=== PATIENT | female | born 1955 | race Caucasian/White ===

== ENCOUNTER 2016-12-27 10:35 | Inpatient (IN) | payer BC ==
--- NOTE | ~2016-12-27 | CN ---
Consultation Report [facility] [address] [place]. [address] NAME: RENEE COLLINS : 55 STATUS : ADM IN PAT#: [id number] AGE: 61 ADM/REG DATE : 12/27/16 MR#: [id number] REPORT SERV DATE: 12/28/16 DICTATED BY: JAMES MASON DATE: 12/28/16 REPORT STATUS : Draft TRANSCRIBED BY: MODL DATE: 12/28/16 CONSULTATION DATE OF CONSULTATION: HISTORY AND PHYSICAL/CONSULTATION REASON FOR CONSULTATION: Asthma exacerbation. HISTORY OF PRESENT ILLNESS: This is a very pleasant 61-year-old white female, who had a recent admission to [facility] where she states that she had been treated for bilateral pneumonia, had been placed on IV antibiotics there, and then discharged home on Levaquin. Subsequently afterwards, she still felt short of breath and fatigued and dyspneic despite the treatment and presented to [facility] where she was admitted by Cardiology Service for chest pain. She has actually undergone a heart catheterization that was performed showing clean coronary arteries and no intervention was done but has continued to feel some shortness of breath and began wheezing quite heavily, and Hospitalist Service was asked for consult given the patient's history of COPD and tobacco use. She states that she currently is smoking approximately half a pack per day, that her current regimen of nebulizer therapy and inhaler therapy has not changed. She does not see a battery service technician, and she does wear oxygen at home, 2 to 3 liters at night. She states that in the past, she has been treated with steroid therapy, and this has helped her get over her exacerbations of COPD and wheezing, but has not been given steroids in some time. PAST MEDICAL HISTORY: Includes hypertension, anxiety, depression, COPD, diabetes type 2 that is diet controlled, coronary artery disease, an WA in 2007, rheumatoid arthritis, chronic pain syndrome, and seizure disorder that has resolved. PAST SURGICAL HISTORY: Hysterectomy, cholecystectomy, appendectomy, prior hernia surgeries, back surgery, three knee surgeries, and cerebral aneurysm with embolization surgery. FAMILY HISTORY: Mother with hypertension and lung cancer. Grandmother with stomach cancer. Father with hypertension and cirrhosis of the liver. SOCIAL HISTORY: She denies any alcohol use. As stated, she smokes half a pack per day, but smoked one to two packs per day prior to that for 40 plus years. ALLERGIES: ZOFRAN, KETORALAC, CONTRAST IODINE, CYCLOBENZAPRINE, AND NEOMYCIN. PRIMARY CARE: [facility]. REVIEW OF SYSTEMS: Negative except for pertinents mentioned in the above HPI. Consultation Report [facility] [address] [place]. [address] NAME: RENEE COLLINS : 55 STATUS : ADM IN PAT#: [id number] AGE: 61 ADM/REG DATE : 12/27/16 MR#: [id number] REPORT SERV DATE: 12/28/16 DICTATED BY: JAMES MASON DATE: 12/28/16 REPORT STATUS : Draft TRANSCRIBED BY: MODL DATE: 12/28/16 LABORATORY AND DIAGNOSTIC DATA: Imaging and testing done so far include a CTA of the chest showing a small pericardial effusion, left pleural effusion, and prominent lymph nodes in the mediastinum, the largest measuring 9 mm. The heart catheterization as described. The echocardiogram showing ejection fraction of 55%, some mild diastolic dysfunction but no significant valve disease, and a trace pericardial effusion with no hemodynamic compromise noted. Lab work shows sodium 134, potassium 4.4, BUN at 9, and creatinine 0.73. White blood cells 12.8, hemoglobin 10.5, and hematocrit 30.7. Interestingly, her INR is 1.5. PHYSICAL EXAMINATION: GENERAL: The patient is alert and oriented x3. No focal deficits. She is generally cooperative and awake for this exam. LUNGS: She does have somewhat labored breathing pattern. She has significant inspiratory and expiratory wheezing and rhonchus on auscultation of the lung riggs. A small rub heard upon auscultation of the chest wall. HEART: Otherwise, regular rate and rhythm, in sinus. No murmurs were auscultated. ABDOMEN: Soft but somewhat generally tender and presence of abdominal hernia. Active bowel sounds. EXTREMITIES: She does have trace to +1 edema in the bilateral lower extremities. HEENT: PERRLA is noted. Sclerae are clear. SKIN: Otherwise, skin is warm and dry. NECK: No JVD. No lymphadenopathy. Normal thyroid. NEUROLOGIC: Cranial nerves intact. ASSESSMENT: 1. Asthma/chronic obstructive pulmonary disease exacerbation with wheezing in the setting of tobacco use. 2. Pericarditis. 3. Small to trace pericardial effusion. 4. Leukocytosis. 5. History of hypertension. 6. History of recent pneumonia treatment. 7. Chronic pain syndrome. 8. Chronic home O2 usage. PLAN: We will treat with IV Solu-Medrol, transition to p.o. prednisone. We will start doxycycline 100 mg twice a day. We will add Pulmicort nebulizer therapies. Lab work; we will check a procalcitonin, TSH, and hemoglobin A1c and follow other basic lab work to include CBC, BMP, magnesium, and PT and INR in the a.m. We will wean her O2 to keep saturations greater than 93%. We will keep her on 2 liters at night, and we will establish pulmonary followup for the patient as an outpatient with Dr. Chase given the chronic disease pattern and the findings of lymph nodes on the CTA. I have discussed this treatment plan with the patient at bedside. She is in agreement. We appreciate the opportunity to participate in the care of this patient. Consultation Report [address] [place]. [address] NAME: RENEE COLLINS ANN : 55 STATUS : ADM IN [facility]#: [id number] AGE: 61 ADM/REG DATE : 12/27/16 MR#: [id number] REPORT SERV DATE: 12/28/16 DICTATED BY: JAMES MASON DATE: 12/28/16 REPORT STATUS : Draft TRANSCRIBED BY: REJI DATE: 12/28/16 JOY/REJI James Mason NP / [id number] CC: Todd Valerio M.D.
--- NOTE | ~2016-12-27 | HP ---
History And Physical [facility] [address] [facility]. [address] NAME: RENEE COLLINS : 55 STATUS : ADM IN PAT#: [id number] AGE: 61 ADM/REG DATE : 12/27/16 MR#: [id number] REPORT SERV DATE: 12/27/16 DICTATED BY: JESSICA VALERIO DATE: 12/27/16 REPORT STATUS : Draft TRANSCRIBED BY: MODL DATE: 12/27/16 DATE OF ADMISSION: 12/27/2016 CHIEF COMPLAINT: Chest pain. HISTORY OF PRESENT ILLNESS: The patient is a 61-year-old female without known cardiac disease. The patient was seen by my partner earlier today at our [facility] office of the [facility]. She had a two to three day history of severe back and chest discomfort. She reported intrascapular chest pain with radiation to the chest. There was a clear pleuritic component on her description, when arrived in the catheterization laboratory. Electrocardiogram was performed, which by interpretation of physicians in the outpatient clinic was felt to be consistent with inferior ST-segment elevation myocardial infarction. The patient was transferred emergently to the [facility] with direct admission to the Catheterization Laboratory at [facility]. On arrival in the Catheterization Laboratory, the patient complained of 7/10 intensity chest discomfort. There was a clear pleuritic exacerbation of the discomfort with deep breathing. The patient described intrascapular pain with radiation to the chest. She reports a recent history of pneumonia, for which she was hospitalized in [facility] several weeks ago. The patient was received via the Code STEMI activation with direct admission to the cardiac catheterization laboratory. The patient reports that chest pain actually began approximately two weeks ago with associated fatigue. The patient took her 's sublingual nitroglycerin which seemed to intermittently improve symptoms. An echocardiogram performed recently demonstrated mild pericardial effusion. The patient also reported significant dyspnea on exertion over the last week or so. Reportedly, becoming dyspneic after only crossing the room. PAST MEDICAL HISTORY: 1. Hypertension. 2. History of palpitations. 3. Anxiety disorder. 4. Depression. 5. Chronic obstructive pulmonary disease. 6. Diabetes mellitus, reportedly diet controlled. ALLERGIES: FLEXERIL, ERYTHROMYCIN, TOLUENE AND ZOFRAN. PAST SURGICAL HISTORY: Previous back surgery, herniorrhaphy, bilateral knee surgeries, hysterectomy, and previous excision of an unknown type of tumor from the stomach. FAMILY HISTORY: Mother and brother with history of early coronary artery disease. SOCIAL HISTORY: Smoking one pack a day and has done so for approximately the last forty years. REVIEW OF SYSTEMS: History And Physical [address] [address] NAME: RENEE COLLINS : 55 STATUS : ADM IN PAT#: [id number] AGE: 61 ADM/REG DATE : 12/27/16 MR#: [id number] REPORT SERV DATE: 12/27/16 DICTATED BY: JESSICA VALERIO DATE: 12/27/16 REPORT STATUS : Draft TRANSCRIBED BY: MODWinston DATE: 12/27/16 Review of systems negative for all organ systems except per the history of present illness. PHYSICAL EXAMINATION: VITAL SIGNS: Blood pressure 136/78, pulse 82, respirations 16 and unlabored, saturation 98% on 2 liters nasal cannula. GENERAL: Elderly female, in moderate distress secondary to chest pain. HEENT: Normal. NECK: Supple, no JVD or bruit, normal carotid upstroke bilaterally, no thyromegaly. LUNGS: Clear to auscultation and percussion. No wheezes, rales or rhonchi. No use of accessory muscles. CARDIOLOGY: Regular rhythm, normal S1, S2, no thrill, no murmur, rubs or gallops, normal PMI. ABDOMEN: Bowel sounds positive, soft, nontender, and nondistended. No masses or aortic bruits. No hepatosplenomegaly or hepatojugular reflux. EXTREMITIES: No edema. Normal pulses. No clubbing or cyanosis. SKIN: Warm and dry, no significant rash. NEUROLOGIC: Alert and oriented x 3. Appropriate mood. EKG: Sinus rhythm, with AL depression and nonspecific ST elevation rather diffusely however more prominent in the inferior leads. IMPRESSION: 1. Suspected acute inferior wall myocardial infarction - the patient received emergently cardiac catheterization laboratory. Catheterization and PCI planned as indicated. 2. Symptoms suspicious for aortic dissection versus serositis, specifically pericarditis. Recent history of reported hospitalization for pneumonia, pleurisy cannot be excluded. In summary, cardiac catheterization demonstrating no significant coronary artery disease with normal left ventricular systolic function and normal regional wall motion abnormalities. CT angiogram of the chest to rule out aortic dissection. Echocardiogram to re-evaluate for any interval progression in pericardial effusion. Suspicious for pericarditis. Nonsteroidal anti-inflammatory treatment and colchicine for presumed pericarditis. CSL/MODL Todd Valerio M.D. / [id number] CC: Todd Valerio M.D.
--- NOTE | ~2016-12-27 | DS ---
Discharge Summary [facility] [address] [place]. [address] NAME: RENEE COLLINS : 55 STATUS : DIS IN PAT#: [id number] AGE: 61 ADM/REG DATE : 12/27/16 MR#: [id number] REPORT SERV DATE: 01/11/17 DICTATED BY: JESSICA VALERIO DATE: 01/10/17 REPORT STATUS : Draft TRANSCRIBED BY: REJI DATE: 01/10/17 Data Collection from hospitalization DISCHARGE DIAGNOSES: 1. Pericarditis. 2. Asthma exacerbation. 3. Hypertension. 4. Diabetes mellitus-reportedly diet controlled. 5. History of palpitations. 6. Anxiety disorder. 7. Depression. 8. Chronic obstructive pulmonary disease. 9. Tobacco use. CONSULTATION: James Bowen NP PROCEDURES PERFORMED: 1. Cardiac catheterization and percutaneous coronary intervention, 12/27/2016. 2. CTA of the chest, 12/27/2016. MEDICATIONS: ProAir two puffs via inhaler every four hours as needed, albuterol 0.63 mg three times a day via inhaler, Xanax 1 mg three times a day as needed, Norvasc 10 mg daily, Brenda aspirin 325 mg daily, Lipitor 40 mg at bedtime, Dramamine 50 mg every four hours as needed, docusate sodium 100 mg at bedtime, Flonase nasal spray two sprays nasally at bedtime, Apresoline 25 mg twice a day, Dilaudid 4 mg twice a day, Prinivil 40 mg daily, Remeron 45 mg at bedtime, Naprosyn 500 mg every 12 hours, Roxicodone 30 mg twice a day, Paxil 20 mg daily, MiraLAX powder one packet daily, Deltasone 20 mg daily, Phenergan 12.5 mg every six hours as needed, Spiriva HandiHaler one capsule via inhaler daily. She was instructed not to continue Plavix or nitroglycerin. HOSPITAL COURSE: This is a 61-year-old female without known cardiac disease. The patient had been seen in the [facility] office of the [facility] on the day of this admission. She had two- to three-day history of severe back and chest discomfort. She reported interscapular chest pain with radiation to the chest. There was a clear pleuritic component to this description. Electrocardiogram had been performed and interpreted by physicians in the outpatient clinic and it was felt to be consistent with inferior ST-segment elevation myocardial infarction. The patient was transferred emergently to [facility] for direct admission to the collaborating supervising physician at [facility]. She was admitted at this time for further evaluation and treatment. Upon arrival in the cardiac collaborating supervising physician, she complained of 7/10 intensity chest pain. There was a clear pleuritic exacerbation of the discomfort with deep breathing. She described interscapular pain with radiation to the chest. She reports a recent history of pneumonia and she had been hospitalized in [facility] several weeks prior to this admission. The patient had been received via the code STEMI activation. The patient states that her chest pain actually began about two weeks prior to this admission. It was associated with fatigue. She took her 's sublingual nitroglycerin, which seemed to intermittently improve her symptoms. Recent echocardiogram demonstrated mild pericardial effusion. She Discharge Summary [address] [place]. [address] NAME: RENEE COLLINS ANN : 55 STATUS : DIS IN PAT#: [id number] AGE: 61 ADM/REG DATE : 12/27/16 MR#: [id number] REPORT SERV DATE: 01/11/17 DICTATED BY: JESSICA VALERIO DATE: 01/10/17 REPORT STATUS : Draft TRANSCRIBED BY: REJI DATE: 01/10/17 had also reported significant dyspnea on exertion over the past week or so. Reportedly, she would become dyspneic after only crossing the room. It was suspected that she has had an acute inferior wall myocardial infarction. She had undergone cardiac catheterization and percutaneous coronary intervention. Cardiac catheterization demonstrated no significant coronary artery disease with normal left ventricular systolic function and normal regional wall motion abnormalities. CTA of the chest was performed to rule out aortic dissection. Echocardiogram was performed to re-evaluate for any interval progression of pericardial effusion. There was suspicion for pericarditis. Nonsteroidal anti-inflammatory treatment and colchicine would be provided for presumed pericarditis. On the following day, she was in a sinus rhythm. Chest pain had improved. She did have wheezing and dyspnea. She had expiratory wheezing. Pericarditis was improving. She was felt to have an exacerbation of her asthma. Naprosyn and colchicine had been started as well as DuoNeb. Gentle diuresis was being performed. She was going to be transferred to the floor. She was seen in consultation by James Bowen, regarding asthma exacerbation. She continued to feel shortness of breath and began to wheeze quite heavily. The patient said she was currently smoking approximately a half pack per day and that her current regimen of nebulizer therapy and inhaler therapy had not changed. 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 She said in the past she had been treated with steroid therapy and this helped her get over the exacerbations of COPD and wheezing. She had not been given steroids in some time. Her CTA of the chest had shown a small pericardial effusion, left pleural effusion and prominent lymph nodes in the mediastinum, the largest measured 9 mm. White blood cell count was 12.8. INR level was 1.5. She was felt to have asthma/chronic obstructive pulmonary disease exacerbation with wheezing in the setting of tobacco use. IV Solu-Medrol was going to be given. We would transition to oral prednisone. Doxycycline was started. Pulmicort nebulizer therapy was added. Procalcitonin, TSH, hemoglobin A1c were going to be checked. O2 would be weaned to keep her saturations greater than 93%. We would keep her on 2 L at night. We would establish pulmonary follow up for the patient as an outpatient with Dr. Chase given the chronic disease pattern and the findings of lymph nodes on the CTA. This was discussed with the patient and she was in agreement. On the , her chest pain and dyspnea had improved. She still has some nausea, vomiting, and diarrhea. She was in a sinus rhythm. She had no edema. It was felt that her nausea, vomiting, and diarrhea may be secondary to colchicine. This was discontinued. Asthma exacerbation was improving. Hydralazine was increased. IV morphine was stopped. NSAIDs were being given. Over the next couple of days, she said she felt poorly. She did not sleep well. She continued to have nausea, vomiting, and dry heaves. Her diarrhea had resolved. Chest pain had improved. There was tenderness in the left lower quadrant. Pulmicort was stopped. Room air ambulatory saturation was going to be checked. Doxycycline was discontinued. Discharge planning was performed. Chest pain significantly improved. On 12/31/2016, nausea and vomiting had improved. She said she was feeling better. A Dulcolax suppository was given. Discharge instructions were given. Due to her improved and stable condition, she was discharged home with the above-stated instructions. Information collected by: Sasha Pearson I submit the above information as my discharge summary. Discharge Summary [place] [address] [facility] [place]. [address] NAME: RENEE COLLINS ANN : 55 STATUS : DIS IN PAT#: [id number] AGE: 61 ADM/REG DATE : 12/27/16 MR#: [id number] REPORT SERV DATE: 01/11/17 DICTATED BY: JESSICA VALERIO DATE: 01/10/17 REPORT STATUS : Draft TRANSCRIBED BY: REJI DATE: 01/10/17 LUZ/REJI Todd Valerio M.D. / [id number] CC: Todd Valerio M.D.
[~2016-12-27 10:35] MED LIST: ADVIL PO; APRES25 PO; ASABAYER PO; D.O.S.100 MG PO; DIL4TAB PO; DIMENHY50I PO; FLONASE NAS; INSULIN; LEVAQUIN750 MG PO; LOP50 PO; NITROSPRAY SL; NITROSTAT0.4 MG SL; P10 PO; PAXIL40 MG PO; PR12.5 PO; PRIN10 PO; PROAIR HFA INH; PROVENTSOL INH; REMERON45 MG PO; ROXICODONE30 MG PO; SALT PO; SPIRIVA INH; STERAPRED DS10 MG; VIST50 PO; XANAX1 MG PO
[2016-12-27 11:42] LABS: BASOPHILS 0.1 %; BASOPHILS ABSOLUTE 0.01 10/3/uL (0.0-0.16); EOSINOPHILS 1.8 %; EOSINOPHILS ABSOLUTE 0.21 10/3/uL (0.0-0.53); IMMATURE GRANULOCYTES 0.3 %; IMMATURE GRANULOCYTES ABSOLUTE 0.04 10/3/uL (0.0-0.11); LYMPHOCYTES 14.4 %; LYMPHOCYTES ABSOLUTE 1.72 10/3/uL (0.67-4.30); MEAN CORPUS HGB CONC 34.1 g/dL (32.0-36.0); MEAN CORPUSCULAR HEMOGLOB 27.7 pg (26.0-34.0); MEAN CORPUSCULAR VOLUME 81.3 fL (80-100); MEAN PLATELET VOLUME 8.2 fL (9.2-13.0); MONOCYTES 9.3 %; MONOCYTES ABSOLUTE 1.11 10/3/uL (0.21-1.20); NEUTROPHILS 74.1 %; NEUTROPHILS ABSOLUTE 8.82 10/3/uL (2.02-8.40); PLATELET COUNT 275 10/3/uL (150-400); RBC DISTRIBUTION WIDTH 13.1 % (12.0-16.0)
[2016-12-27 11:44] LABS: HEMATOCRIT 29.9 % (36.0-48.0); HEMOGLOBIN 10.2 g/dL (12.0-16.0); MANUAL DIFF NO %; RED CELL COUNT 3.68 10/6/uL (4.0-5.6); WHITE BLOOD CELLS 11.9 10/3/uL (4.5-10.5)
[2016-12-27 11:49] LABS: INTERNATIONAL NORMAL RATI 1.5 UNITS (-)
[2016-12-27 11:50] LABS: PROTIME (NOT ORD) 17.9 SEC (12.0-14.5)
[2016-12-27 11:52] LABS: PARTIAL THROMBO TIME 136.3 SEC (22.5-37.2)
[2016-12-27 11:58] LABS: BUN (BLOOD UREA NITROGEN) 15 MG/DL (6-23); CALCIUM, SERUM 7.6 MG/DL (8.5-10.4); CHEST PAIN PROFILE TAT 0 Hrs 20 Mins; CHLORIDE, SERUM 94 MMOL/L (96-112); CO2 (CARBON DIOXIDE) 26 MMOL/L (24-34); CREATININE 0.92 MG/DL (0.55-1.02); GFR AFRICAN AMERICAN 78 ML/MIN (>=60); GFR NON AFRICAN AMERICAN 67 ML/MIN (>=60); GLUCOSE, SERUM 103 MG/DL (60-99); POTASSIUM, SERUM 3.7 MMOL/L (3.5-5.3); SODIUM, SERUM 129 MMOL/L (135-148); TROPONIN I <0.02 NG/ML (<0.05)
[2016-12-27 12:41] LABS: CREATININE 0.9 MG/DL (0.55-1.02)
[2016-12-27] MEDS ORDERED: ALBUTEROL0.63 MG/3 INH (12:55)
[2016-12-27] MEDS ORDERED: NORV10 PO (12:57)
[2016-12-27] MEDS ORDERED: LIPITOR40 PO (13:04)
[2016-12-27] MEDS ORDERED: LISINOPRIL40 MG PO (13:05)
[2016-12-27] MEDS ORDERED: PLAVIX PO (13:05)
[2016-12-27] MEDS ORDERED: PROAIRRESP INH (13:06)
[2016-12-27] MEDS ORDERED: PAX20 PO (13:06)
[2016-12-28 04:05] LABS: BASOPHILS 0.2 %; BASOPHILS ABSOLUTE 0.02 10/3/uL (0.0-0.16); EOSINOPHILS 1.1 %; EOSINOPHILS ABSOLUTE 0.14 10/3/uL (0.0-0.53); HEMATOCRIT 30.7 % (36.0-48.0); HEMOGLOBIN 10.5 g/dL (12.0-16.0); IMMATURE GRANULOCYTES 0.3 %; IMMATURE GRANULOCYTES ABSOLUTE 0.04 10/3/uL (0.0-0.11); LYMPHOCYTES 8.6 %; MEAN CORPUS HGB CONC 34.2 g/dL (32.0-36.0); MEAN CORPUSCULAR HEMOGLOB 28.2 pg (26.0-34.0); MEAN CORPUSCULAR VOLUME 82.3 fL (80-100); MONOCYTES 7.8 %; MONOCYTES ABSOLUTE 0.99 10/3/uL (0.21-1.20); NEUTROPHILS ABSOLUTE 10.47 10/3/uL (2.02-8.40); PLATELET COUNT 267 10/3/uL (150-400); RED CELL COUNT 3.73 10/6/uL (4.0-5.6); WHITE BLOOD CELLS 12.8 10/3/uL (4.5-10.5)
[2016-12-28 04:06] LABS: MANUAL DIFF NO %
[2016-12-28 04:12] LABS: CALCIUM, SERUM 8.3 MG/DL (8.5-10.4); CHLORIDE, SERUM 99 MMOL/L (96-112); CO2 (CARBON DIOXIDE) 27 MMOL/L (24-34); CREATININE 0.73 MG/DL (0.55-1.02); GFR AFRICAN AMERICAN 103 ML/MIN (>=60); GFR NON AFRICAN AMERICAN 89 ML/MIN (>=60); GLUCOSE, SERUM 111 MG/DL (60-99); POTASSIUM, SERUM 4.4 MMOL/L (3.5-5.3); SODIUM, SERUM 134 MMOL/L (135-148)
[2016-12-28 04:17] LABS: BUN (BLOOD UREA NITROGEN) 9 MG/DL (6-23)
[2016-12-28 11:34] LABS: PROCALCITONIN 0.07 ng/mL (<0.5)
[2016-12-29 08:57] LABS: CHLORIDE, SERUM 95 MMOL/L (96-112); CO2 (CARBON DIOXIDE) 26 MMOL/L (24-34); CREATININE 0.71 MG/DL (0.55-1.02); GFR AFRICAN AMERICAN 107 ML/MIN (>=60); GFR NON AFRICAN AMERICAN 92 ML/MIN (>=60); GLUCOSE, SERUM 114 MG/DL (60-99); POTASSIUM, SERUM 3.8 MMOL/L (3.5-5.3); SODIUM, SERUM 131 MMOL/L (135-148)
[2016-12-29 08:58] LABS: INTERNATIONAL NORMAL RATI 1.1 UNITS (-); PROTIME (NOT ORD) 14.5 SEC (12.0-14.5)
[2016-12-29 09:00] LABS: BUN (BLOOD UREA NITROGEN) 15 MG/DL (6-23)
[2016-12-29 10:02] LABS: BASOPHILS 0.1 %; BASOPHILS ABSOLUTE 0.01 10/3/uL (0.0-0.16); EOSINOPHILS 0.1 %; EOSINOPHILS ABSOLUTE 0.01 10/3/uL (0.0-0.53); HEMOGLOBIN 11.7 g/dL (12.0-16.0); IMMATURE GRANULOCYTES 0.5 %; IMMATURE GRANULOCYTES ABSOLUTE 0.06 10/3/uL (0.0-0.11); LYMPHOCYTES 5.7 %; LYMPHOCYTES ABSOLUTE 0.67 10/3/uL (0.67-4.30); MEAN CORPUS HGB CONC 34.6 g/dL (32.0-36.0); MEAN CORPUSCULAR HEMOGLOB 27.6 pg (26.0-34.0); MEAN PLATELET VOLUME 8.6 fL (9.2-13.0); MONOCYTES 1.6 %; MONOCYTES ABSOLUTE 0.19 10/3/uL (0.21-1.20); NEUTROPHILS ABSOLUTE 10.81 10/3/uL (2.02-8.40); RBC DISTRIBUTION WIDTH 12.5 % (12.0-16.0); RED CELL COUNT 4.24 10/6/uL (4.0-5.6); WHITE BLOOD CELLS 11.8 10/3/uL (4.5-10.5)
[2016-12-29 10:03] LABS: HEMATOCRIT 33.8 % (36.0-48.0); MANUAL DIFF NO %; MEAN CORPUSCULAR VOLUME 79.7 fL (80-100); PLATELET COUNT 356 10/3/uL (150-400)
[2016-12-30 10:35] LABS: ALKALINE PHOSPHATASE 117 U/L (45-117); SGOT(AST) 16 U/L (5-40); SGPT(ALT) 15 U/L (5-65); TOTAL PROTEIN 7.2 G/DL (6.0-8.5)
[2016-12-30 10:36] LABS: ALBUMIN 2.8 G/DL (3.5-5.0); DIRECT BILIRUBIN < 0.1 MG/DL (0.0-0.4); INDIRECT BILIRUBIN(NOT ORDER) 0.2 MG/DL (0.1-0.9); TOTAL BILIRUBIN 0.3 MG/DL (0-1.2)
[2016-12-31 06:01] LABS: BASOPHILS 0.4 %; BASOPHILS ABSOLUTE 0.03 10/3/uL (0.0-0.16); EOSINOPHILS 3.8 %; EOSINOPHILS ABSOLUTE 0.31 10/3/uL (0.0-0.53); HEMATOCRIT 35.8 % (36.0-48.0); HEMOGLOBIN 12.4 g/dL (12.0-16.0); IMMATURE GRANULOCYTES 0.7 %; IMMATURE GRANULOCYTES ABSOLUTE 0.06 10/3/uL (0.0-0.11); LYMPHOCYTES 41.4 %; LYMPHOCYTES ABSOLUTE 3.38 10/3/uL (0.67-4.30); MEAN CORPUS HGB CONC 34.6 g/dL (32.0-36.0); MEAN CORPUSCULAR HEMOGLOB 27.8 pg (26.0-34.0); MEAN CORPUSCULAR VOLUME 80.3 fL (80-100); MEAN PLATELET VOLUME 7.7 fL (9.2-13.0); MONOCYTES ABSOLUTE 0.98 10/3/uL (0.21-1.20); NEUTROPHILS 41.7 %; NEUTROPHILS ABSOLUTE 3.41 10/3/uL (2.02-8.40); PLATELET COUNT 350 10/3/uL (150-400); RBC DISTRIBUTION WIDTH 12.7 % (12.0-16.0); RED CELL COUNT 4.46 10/6/uL (4.0-5.6); WHITE BLOOD CELLS 8.2 10/3/uL (4.5-10.5)
[2016-12-31 06:03] LABS: MANUAL DIFF NO %
[2016-12-31 06:12] LABS: BUN (BLOOD UREA NITROGEN) 13 MG/DL (6-23); CHLORIDE, SERUM 99 MMOL/L (96-112); CO2 (CARBON DIOXIDE) 31 MMOL/L (24-34); GFR AFRICAN AMERICAN 92 ML/MIN (>=60); GFR NON AFRICAN AMERICAN 80 ML/MIN (>=60); GLUCOSE, SERUM 86 MG/DL (60-99); POTASSIUM, SERUM 3.8 MMOL/L (3.5-5.3); SODIUM, SERUM 136 MMOL/L (135-148)
[2016-12-31] MEDS ORDERED: NAP500 PO (11:37)
[2016-12-31] MEDS ORDERED: P10 PO (11:40)
[2016-12-31] MEDS ORDERED: MIRALAX POWDER1 PKT PO (11:46)
== END 2016-12-31 14:10 | disposition home or self-care (01) | DRG 287 ==
LOC: SSU2 10:35 → SSU1 12:18 → 7NO 12-28 13:11
PROVIDERS: Internal Medicine Cardiovascular Disease; Nurse Practitioner Family
PROC: 4A023N7 Measurement of Cardiac Sampling and Pressure, Left Heart, Percutaneous Approach (ICD-10-PCS; principal; 2016-12-27)
PROC: B2111ZZ Fluoroscopy of Multiple Coronary Arteries using Low Osmolar Contrast (ICD-10-PCS; 2016-12-27)
PROC: B2151ZZ Fluoroscopy of Left Heart using Low Osmolar Contrast (ICD-10-PCS; 2016-12-27)
DX: I30.9 Acute pericarditis, unspecified (principal); J44.1 Chronic obstructive pulmonary disease with (acute) exacerbation; Z99.81 Dependence on supplemental oxygen; J45.901 Unspecified asthma with (acute) exacerbation; J44.9 Chronic obstructive pulmonary disease, unspecified; F17.210 Nicotine dependence, cigarettes, uncomplicated; I10 Essential (primary) hypertension; G89.4 Chronic pain syndrome
CPT/HCPCS: 71275; 74000; 80048; 80076; 82150; 82962; 83036; 83690; 83735; 84132; 84145; 84295; 84443; 84484; 85025; 85347; 85610; 85730; 93005; 93458; 94640; 99152; A9270-GY; C1769; C8929; J0583; J2250; J2550; J2765; J2930; J3010; Q9957; Q9967